=== PATIENT | male | born 1975 | race Caucasian/White ===

== ENCOUNTER 2024-02-22 18:08 | Emergency (ER) | payer SELFPAY ==
[~2024-02-22] VITALS: Ht 170.2 cm; Wt 103.0 kg
[2024-02-22 18:15] VITALS: O2SAT 98
[2024-02-23] MEDS ORDERED: TRAZ-251 MT (00:08)
[2024-02-23 00:29] VITALS: BP 160/90; PULSE 82; RESP 18; TEMP 98
== END 2024-02-23 00:32 | disposition home or self-care (01) ==
LOC: ER 18:08
DX: G47.00 Insomnia, unspecified (principal); E78.00 Pure hypercholesterolemia, unspecified; I10 Essential (primary) hypertension; E03.9 Hypothyroidism, unspecified
CPT/HCPCS: 99283